=== PATIENT | male | born 1995 | race Caucasian/White ===

== ENCOUNTER 2017-01-20 11:07 | Emergency (ER) | payer MEDICAID ==
[~2017-01-20] VITALS: Ht 170.2 cm; Wt 70.5 kg
[2017-01-20 11:10] VITALS: Ht 170.2 cm; Wt 70.5 kg
--- NOTE | 2017-01-20 11:37 | ERD ---
ER Documentation Chief Complaint Date/Time DATE: 01/20/17 TIME: 11:34 Chief Complaint 3 DAYS AGO INJURED R MIDDLE FINGER BLACKENED NAIL HPI This is a 21-year-old male who presents the emergency department today complaining of right hand third finger pain after smashing in the door. States he is taken Tylenol and Advil for pain. Denies any fevers or chills, previous trauma. States this happened 2 days ago ROS All systems reviewed and are negative except as per history of present illness. Medications Home Meds Active Scripts Cephalexin* (Keflex*) 500 Mg Capsule, 500 MG PO QID for 7 Days, CAP Prov:LIZA WARE PA-C 01/20/17 Naproxen* (Naprosyn*) 500 Mg Tablet, 500 MG PO BID Y for PAIN AND/OR INFLAMMATION, #30 TAB Prov:LIZA WARE PA-C 01/20/17 Hydrocodone/Acetaminophen ([place] 5-325 Tablet) 1 Each Tablet, 1 TAB PO Q6H Y for PAIN, #12 TAB Prov:LIZA WARE PA-C 01/20/17 Allergies Allergies: Coded Allergies: No Known Allergy (Unverified , 01/20/17) PMhx/Soc Medical and Surgical Hx: pt denies Medical Hx, pt denies Surgical Hx History of Surgery: No Anesthesia Reaction: No Hx Neurological Disorder: No Hx Respiratory Disorders: No Hx Cardiac Disorders: No Hx Psychiatric Problems: No Hx Miscellaneous Medical Probl: No Hx Alcohol Use: No Hx Substance Use: No Hx Tobacco Use: No Smoking Status: Never smoker Physical Exam Vitals Vital Signs Date Time Temp Pulse Resp B/P Pulse Ox O2 Delivery O2 Flow Rate FiO2 01/20/17 11:10 97.6 75 18 122/68 99 Physical Exam Const: NAD Head: Atraumatic Eyes: Normal Conjunctiva ENT: Normal External Ears, Nose and Mouth. Neck: Full range of motion..~ No meningismus. Resp: Clear to auscultation bilaterally Cardio: Regular rate and rhythm, no murmurs Abd: Soft, non tender, non distended. Normal bowel sounds Skin: No petechiae or rashes MSK: Right hand third digit with evidence of subungual hematoma lies erythema. Tenderness to palpation DIP joint. Full active range of motion of finger. Pulses 2+. Neur: Awake and alert Psych: Normal Mood and Affect Results 24 hrs Current Medications Medications (Trade) Dose Ordered Sig/Layne Route PRN Reason Start Time Stop Time Status Last Admin Dose Admin Acetaminophen/ Hydrocodone Bitart ([place] (5/325)) 1 tab ONCE ONCE PO 01/20/17 12:30 01/20/17 12:31 Cancel Ibuprofen (Motrin) 800 mg ONCE ONCE PO 01/20/17 12:30 01/20/17 12:31 DC 01/20/17 12:27 DIAGNOSTIC IMAGING REPORT Patient: MARYSOL PUCKETT : 1995 Age: 21 Sex: M MR #: [id number] DOS: 01/20/17 0000 Ordering MD: LIZA WARE PA-C Location: [facility] Room/Bed: PROCEDURE: XR Finger 3 Views. CLINICAL INDICATION: Right third finger pain and trauma. TECHNIQUE: Three views of the right third finger were obtained. COMPARISON: None. FINDINGS: Transverse, moderately displaced fracture through the mid shaft of the third distal phalanx is identified. The remaining osseous structures appear intact. No destructive bony lesions are observed. Interosseous spaces appear normal. The soft tissues are without gross abnormality. IMPRESSION: Third distal phalanx fracture. If there is high clinical suspicion for additional traumatic injury, further evaluation with CT should be considered. RPTAT: AA .William Feliciano MD, MD Date Time Electronically viewed and signed by .William Feliciano MD, MD on 01/20/2017 13:47 .P/ CC: LIZA WARE PA-C Procedures/MDM This is a 26-year-old male who presents to the emergency department today complaining of right hand third finger pain after smashing it in a door 2 nights ago. On physical exam patient has evidence of subungual hematoma. He does have tenderness and redness at the DIP joint. Given this I did obtain images. Per the radiology report images of the right hand third finger show a transverse moderately displaced fracture through the midshaft of the third distal phalanx. This is likely the source of the patient's pain however the patient also has evidence of a significant subungual hematoma. I did explain to the patient that I could drain some of the blood from the area. I explained the risks and benefits of the procedure and the patient agreed to proceed. The wound was cleaned in the usual sterile fashion. I used an 18-gauge needle and inserted at the tip of the nail and a significant amount of blood was drained. I did not feel that using a cauterizing device was appropriate given patient had a fracture in that area. Patient tolerated the procedure well and there were no complications. Patient was placed in a splint. He is distally neurovascular intact pre-and post splint application. He is given a list of resources for study specialist and [facility] hand clinic Patient was given Motrin here in the emergency department as he was driving. I will give him a short course of [place] and Naprosyn for home. Patient is also given a prescription for Keflex given the fracture and redness around the nail bed as well as to cover him for an area that I drained. At this time the patient is stable for discharge and outpatient management. Patient should follow up with their PCP in the next 1-2 days. They may return to the emergency department sooner for any persistent or worsening of symptoms. Patient understood and agreed with the plan. Discussed the patient with Dr. Lester and he is in agreement with the plan. Departure Diagnosis: Primary Impression: Finger fracture Encounter type: initial encounter Finger: middle finger Fracture type: closed Phalanx: distal Fracture alignment: displaced Laterality: right Qualified Code: S62.632A - Closed displaced fracture of distal phalanx of right middle finger, initial encounter Additional Impression: Subungual hematoma Condition: Fair LIZA WARE PA-C Jan 20, 2017 11:37
[2017-01-20] MEDS ORDERED: HYDROCODONE/APAP (5/325) TAB PO ONE (12:30)
[2017-01-20] MEDS ORDERED: IBUPROFEN 800 MG TAB PO ONE (12:30)
--- NOTE | 2017-01-20 13:47 | RADRPT ---
PROCEDURE: XR Finger 3 Views. CLINICAL INDICATION: Right third finger pain and trauma. TECHNIQUE: Three views of the right third finger were obtained. COMPARISON: None. FINDINGS: Transverse, moderately displaced fracture through the mid shaft of the third distal phalanx is ident ified. The remaining osseous structures appear intact. No destructive bony lesions are observed. Int erosseous spaces appear normal. The soft tissues are without gross abnormality. IMPRESSION: Third distal phalanx fracture. If there is high clinical suspicion for additional traumatic injury, further evaluation with CT shou ld be considered. RPTAT: AA .William Feliciano MD, Date Time Electronically viewed and signed by .William Feliciano MD, on 01/20/2017 13:47 .P/
[2017-01-20] MEDS ORDERED: HYDR-906 PO (14:39)
[2017-01-20] MEDS ORDERED: NAPR-260 PO (14:40)
[2017-01-20] MEDS ORDERED: CEPH-443 PO (14:47)
== END 2017-01-20 15:30 | disposition home or self-care (01) ==
LOC: FTE 11:07
DX: S62.632A Displaced fracture of distal phalanx of right middle finger, initial encounter for closed fracture (principal); W23.0XXA Caught, crushed, jammed, or pinched between moving objects, initial encounter; Y92.9 Unspecified place or not applicable
CPT/HCPCS: 29130; 73140; Z7502; Z7610